=== PATIENT | female | born 1995 | race Caucasian/White ===

== ENCOUNTER 2022-01-28 11:15 | Outpatient (CLI) | payer OTHER ==
[2022-01-28 18:40] LABS: BASOPHILS # (AUTO) 0.1 10^3/uL (0.0-0.1); BASOPHILS % (AUTO) 1.8 %; EOSINOPHILS # (AUTO) 0.2 10^3/uL (0.0-0.7); EOSINOPHILS % (AUTO) 5.2 %; HCT - HEMATOCRIT 43.6 % (37.0-47.0); HGB - HEMOGLOBIN 14.3 g/dL (12.0-16.0); LYMPHOCYTES # (AUTO) 1.3 10^3/uL (1.5-3.5); LYMPHOCYTES % (AUTO) 29.2 %; MEAN CORPUSCULAR HEMOGLOBIN 31.5 pg (27.0-31.0); MEAN CORPUSCULAR HGB CONC 32.8 g/dL (32.0-36.0); MEAN PLATELET VOLUME 10.5 fL (7.9-10.8); MONOCYTES # (AUTO) 0.5 10^3/uL (0.0-1.0); MONOCYTES % (AUTO) 10.2 %; NEUTROPHILS # (AUTO) 2.4 10^3/uL (1.5-6.6); NEUTROPHILS % (AUTO) 53.4 %; PLT - PLATELET COUNT 348 10^3/uL (130-450); RED BLOOD COUNT 4.54 10^6/uL (4.20-5.40); RED CELL DISTRIBUTION WIDTH 12.1 % (12.0-15.0); WHITE BLOOD COUNT 4.4 x10^3/uL (4.8-10.8)
[2022-01-28 18:53] LABS: ALBUMIN 5.1 g/dL (3.2-5.5); ALBUMIN/GLOBULIN RATIO 1.5 (1.0-2.2); BILIRUBIN,TOTAL 0.8 mg/dL (0.2-1.0); CALCIUM 9.6 mg/dL (8.5-10.3); CREATININE 0.6 mg/dL (0.4-1.0); POTASSIUM 4.2 mmol/L (3.5-5.0); TOTAL PROTEIN 8.4 g/dL (6.7-8.2)
== END 2022-01-28 11:16 | disposition home or self-care (01) ==
LOC: LAB.N 11:15
PROVIDERS: ATTEND Registered Nurse
DX: Z13.228 Encounter for screening for other metabolic disorders (principal); Z13.0 Encounter for screening for diseases of the blood and blood-forming organs and certain disorders involving the immune mechanism; Z13.29 Encounter for screening for other suspected endocrine disorder
CPT/HCPCS: 36415; 80053; 84443; 85025

== ENCOUNTER 2022-08-08 14:45 | Outpatient (CLI) | payer OTHER ==
--- NOTE | 2022-08-09 11:31 | Ultrasound Report ---
LIMITED ULTRASOUND OF LEFT BREAST: 08/08/2022 CLINICAL: Intermitten pain in Left breast. No prior exams were available for comparison. Real-time ultrasound of the left breast four quadrants was performed. Lovelace scale images of the real -time examination were reviewed. No significant abnormalities were seen sonographically in the left breast. IMPRESSION: NEGATIVE There is no sonographic evidence of malignancy. There is no abnormality seen in the left breast to correspond with the pain, however, clinical follow up is recommended. Follow-up with ACR/ACS guidelines. This exam was interpreted at Station ID: [id number]. Electronically Signed By: Martinez zeng/terrell:08/08/2022 16:48:47 Ultrasound BI-RADS: 1 Negative BI-RADS CATEGORY: (1) - 1 Unspecified - other no recall LATERALITY: (B)
== END 2022-08-08 14:46 | disposition home or self-care (01) ==
LOC: DI 14:45
PROVIDERS: ATTEND Physician Assistant
DX: N64.4 Mastodynia (principal)

== ENCOUNTER 2022-08-22 15:39 | Outpatient (CLI) | payer OTHER ==
--- NOTE | 2022-08-22 16:49 | Ultrasound Report ---
PROCEDURE: Pelvic w/Transvaginal INDICATIONS: PELVIC PAIN TECHNIQUE: Real-time scanning was performed of the pelvic organs, with image documentation. Additional endovagi nal scanning was necessary due to incomplete visualization of the adnexal and endometrial structures by transabdominal scanning. COMPARISON: None. FINDINGS: Uterus: Uterus is anteverted and normal in size at 6.5 x 2.8 x 4.6 cm. The myometrium is homogeneou s. The endometrium measures 7.3 mm in combined thickness. Ovaries: The right ovary measures 2.6 x 2.2 x 1.7 cm, with a calculated ovarian volume of 5.1 cc. T he left ovary measures 4.8 x 4.3 x 3.6 cm, with a calculated ovarian volume of 38.9 cc. There is a h emorrhagic cyst in left ovary measuring 3.8 x 2.8 x 3.9 cm. A 1.7 x 1.8 cm simple cyst is also noted in the left ovary, most likely a dominant follicle. Less than 12 follicles can be seen in each ovary. No adnexal masses are seen. Other: No pathologic free abdominal or pelvic fluid. IMPRESSION: 1. A 3.8 x 2.8 x 3.9 cm hemorrhagic cyst in left ovary. 2. Normal uterus and right ovary Reviewed by: Jarrell Tafoya MD on 08/22/2022 4:48 PM PDT Approved by: Jarrell Tafoya MD on 08/22/2022 4:48 PM PDT Station ID: [id number]
== END 2022-08-22 15:40 | disposition home or self-care (01) ==
LOC: DI 15:39
PROVIDERS: ATTEND Nurse Practitioner
DX: N83.202 Unspecified ovarian cyst, left side (principal)

== ENCOUNTER 2023-01-17 14:54 | Outpatient (CLI) | payer OTHER ==
--- NOTE | 2023-01-18 15:01 | Ultrasound Report ---
PROCEDURE: Pelvic w/Transvaginal INDICATIONS: OVARIAN CYST TECHNIQUE: Real-time scanning was performed of the pelvic organs, with image documentation. Additional endovagi nal scanning was necessary due to incomplete visualization of the adnexal and endometrial structures by transabdominal scanning. COMPARISON: Pelvic ultrasound 08/22/2022 FINDINGS: Uterus: Uterus is anteverted and measures 6.6 x 2.7 x 4.0 cm. The myometrium is homogeneous. The e ndometrium measures 2 mm in combined thickness. Ovaries: The right ovary measures 3.4 x 2.6 x 2.4 cm, with a calculated ovarian volume of 11 cc. Th e left ovary measures 4.1 x 3.2 x 4.7 cm, with a calculated ovarian volume of 33 cc. Redemonstrated complex cyst with low-level internal echoes within the left ovary, 3.7 x 2.8 x 3.7 cm, previously 3.8 x 2.8 x 3.9 cm, no significant change. Other: No pathologic free abdominal or pelvic fluid. IMPRESSION: No significant change in the previously demonstrated left ovarian complex cyst. The appearance and pe rsistence since the prior exam is suggestive of an endometrioma. Reviewed by: Martinez Murguia MD on 01/18/2023 3:00 PM PST Approved by: Martinez Murguia MD on 01/18/2023 3:00 PM PST Station ID: [id number]
== END 2023-01-17 14:55 | disposition home or self-care (01) ==
LOC: DI 14:54
PROVIDERS: ATTEND Obstetrics & Gynecology
DX: N83.292 Other ovarian cyst, left side (principal)

== ENCOUNTER 2023-02-02 13:18 | Emergency (ER) | payer OTHER ==
[2023-02-02 13:28] VITALS: BP 134/79
--- NOTE | 2023-02-02 13:47 | ED Physician Documentation ---
PD HPI UPPER EXT INJURY - Stated complaint Stated Complaint: LT ARM PX/SWELLING/DISCOLOR - Chief complaint Chief Complaint: Ext Problem - History obtained from History obtained from: Patient - Additonal information Additional information: 27-year-old with 1-month-old Nexplanon in the left upper extremity developed sudden left arm pain whilst laying on the couch about an hour ago. Pain is better but not gone. She briefly had purple nests in her hand associated with this. 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: Ovarian cysts : None HEENT: None Psych: None Musculoskeletal: None Derm: None - Past Surgical History Past Surgical History: No - Present Medications Home Medications: Ambulatory Orders Medication Instructions Recorded Confirmed Glycopyrrolate 1 mg PO DAILY 02/02/23 02/02/23 - Allergies Allergies/Adverse Reactions: Allergies Allergy/AdvReac Type Severity Reaction Status Date / Time No Known Drug Allergies Allergy Verified 02/02/23 13:28 - Social History Does the pt smoke?: Yes Smoking Status: Current every day smoker Does the pt drink ETOH?: No Does the pt have substance abuse?: No - Immunizations Immunizations are current?: Yes - POLST Patient has POLST: No PD ED PE NORMAL - Vitals Vital signs reviewed: Yes - General General: Alert and oriented X 3, No acute distress - Extremities Extremities: Other (There is a palpable Nexplanon just above the left medial antecubital fossa which is tender. It is not red or swollen or having other signs of infection or inflammation. She has normal radial pulses. Normal sensation throughout the hands. Bedside ultrasound does not demonstrate any thrombosis in ) - Neuro Neuro: Alert and oriented X 3, Normal speech Results - Vitals Vitals: Vital Signs - 24 hr 02/02/23 13:21 Temperature 36.9 C Heart Rate 112 H Respiratory 16 Rate Blood Pressure 134/79 H O2 Saturation 99 Oxygen O2 Source Room air PD Medical Decision Making - ED course ED course: 27-year-old with a tender Nexplanon. Vascular cause of pain considered but bedside ultrasound not showing thrombotic disease. Normal pulses. Normal neurologic exam. No neck pain or chest pain is associated with this. Offered to remove the Nexplanon but she would like to do watchful waiting for the next few days. Departure - Departure Disposition: 01 Home, Self Care Clinical Impression: Nexplanon in place Pain of upper extremity Qualifiers: Laterality: left Qualified Code(s): M79.602 - Pain in left arm Condition: Good Record reviewed to determine appropriate education?: Yes Instructions: ED Acute Pain UKO Comments: As discussed, based on exam it seems like the Nexplanon itself is tender and causing the pain you are experiencing. Not clear why, potentially some unrecollected trauma causing inflammation? Does not look infected. Return if worse, if still having persistent pain next week you could follow-up with your nurse practitioner for consideration for removal and alternative control. Ibuprofen as needed for pain per package instructions.
== END 2023-02-02 13:51 | disposition home or self-care (01) ==
LOC: ED 13:18
DX: M79.602 Pain in left arm (principal); Z96.89 Presence of other specified functional implants; F17.200 Nicotine dependence, unspecified, uncomplicated
CPT/HCPCS: 99281; 99283

== ENCOUNTER 2023-02-04 20:26 | Emergency (ER) | payer OTHER ==
[2023-02-04 20:45] VITALS: BP 125/74
[2023-02-04] MEDS ORDERED: LIDOCAINE 1%-EPI 1:100000 10 ML MDV SUBQ STA (21:01)
--- NOTE | 2023-02-04 21:11 | ED Physician Documentation ---
History of Present Illness - Stated complaint Stated Complaint: LT ARM PX - Chief complaint Chief Complaint: Ext Problem - History obtained from History obtained from: Patient, Family (mother) - History of Present Illness Timing: How many days ago (3) - Additonal information Additional information: 27-year-old female who had a Nexplanon placed 1 month ago presented to the emergency department 2 days ago with left arm pain. She has intermittent pain and pain with movement of her arm. She has no evidence of inflammation directly to the site but she has become nervous about her symptoms and wants to have her Nexplanon removed Review of Systems Constitutional: denies: Fever Nose: denies: Congestion Throat: denies: Sore throat Respiratory: denies: Cough GI: reports: Nausea. denies: Vomiting Musculoskeletal: reports: Extremity pain. denies: Joint pain, Extremity swelling, Joint swelling Neurologic: reports: Numbness. 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 : None HEENT: None Psych: None Musculoskeletal: None Derm: None - Past Surgical History Past Surgical History: No - Present Medications Home Medications: Ambulatory Orders Medication Instructions Recorded Confirmed Glycopyrrolate 1 mg PO DAILY 02/02/23 02/02/23 - Allergies Allergies/Adverse Reactions: Allergies Allergy/AdvReac Type Severity Reaction Status Date / Time No Known Drug Allergies Allergy Verified 02/02/23 13:28 - Social History Does the pt smoke?: Yes Smoking Status: Current every day smoker Does the pt drink ETOH?: No Does the pt have substance abuse?: No - Immunizations Immunizations are current?: Yes - POLST Patient has POLST: No PD ED PE NORMAL - Vitals Vital signs reviewed: Yes (tachy) - General General: Alert and oriented X 3, Well developed/nourished, Other (The patient appears anxious and breathless.) - HEENT HEENT: Atraumatic, PERRL, EOMI - Respiratory Respiratory: No respiratory distress - Derm Derm: Normal color, Warm and dry, No rash - Extremities Extremities: No deformity, No edema, Other (The left distal humerus has a palpable subcutaneous foreign body consistent with a Nexplanon near the elbow on the medial surface there is no surrounding erythema or swelling. The area is mildly tender. Distal neurovascular components are intact.) - Neuro Neuro: Alert and oriented X 3, immigration case manager 2-12 intact, No motor deficit, No sensory deficit, Normal speech Eye Opening: Spontaneous Motor: Obeys Commands Verbal: Oriented GCS Score: 15 - Psych Psych: Normal affect, Other (Mood is anxious.) Results - Vitals Vitals: Vital Signs - 24 hr 02/04/23 20:40 Temperature 36.8 C Heart Rate 109 H Respiratory 20 Rate Blood Pressure 125/74 O2 Saturation 99 Oxygen O2 Source Room air Procedures - FB removal FB location: Subcutaneous FB removal preparation: Local anesthesia-specify (2% lido with epi) Removal method: Incision (see [facility] for proceedure report) FB removal aftercare: No complications, Removed successfully PD Medical Decision Making - ED course Complexity details: reviewed old records, considered differential, d/w patient, d/w family ED course: 27-year-old female with a recent placement of a Nexplanon has developed pain around site of insertion without evidence of swelling or erythema. She has had continued vaginal bleeding since placement of the Nexplanon and she wishes the Nexplanon to be removed. She is quite anxious about the entire event. At the conclusion of the removal she is relieved. With the patient's arm above her head and bent I am able to palpate the distal and proximal limbs of the Nexplanon. 2% lido with epi is infiltrated under the distal end of the Nexplanon and a #11 blade is used to incise through the skin and the Nexplanon is manipulated until the end of it protrudes from the incision and this is removed with fingers. The patient tolerated this with some anxiety but did well with pain. The wound was closed with Dermabond. The Nexplanon was discarded. Departure - Departure Disposition: 01 Home, Self Care Clinical Impression: Encounter for Nexplanon removal Condition: Stable Instructions: Etonogestrel implant Follow-Up: Marija Romeo ARNP [Credentialed Staff Provider] - Comments: Shavon today we were able to remove the Nexplanon and my recommendation is to follow-up with Dyan Romeo about continued control. The wound itself will take about 10 days to heal and we are not expecting inflammation swelling or redness associated with this
[2023-02-04] MEDS ORDERED: LIDOCAINE MPF 2%-EPI 1:200000 20 ML VIAL ONE (21:15)
[2023-02-04] MEDS ORDERED: LIDOCAINE MPF 2%-EPI 1:200000 10 ML VIAL SUBQ STA (21:24)
== END 2023-02-04 21:47 | disposition home or self-care (01) ==
LOC: ED 20:26
DX: Z45.89 Encounter for adjustment and management of other implanted devices (principal)
CPT/HCPCS: 11982; 99281

== ENCOUNTER 2023-06-14 13:00 | Emergency (ER) | payer OTHER ==
--- NOTE | 2023-06-14 13:27 | ED Physician Documentation ---
PD HPI CHEST PAIN - Stated complaint Stated Complaint: CHEST PX - Chief complaint Chief Complaint: Cardiac - History obtained from History obtained from: Patient - History of Present Illness Timing - onset: Yesterday Timing - onset during: Light activity. No: Exertion Timing - duration: Days (1) Timing - details: Abrupt onset, Still present, Waxing and waning Quality: Aching, Sharp, Pain Location: Substernal, Left chest Radiation: Back. No: Neck, Abdominal Improved by: Rest Worsened by: Inspiration, Movement. No: Exertion Associated symptoms: Shortness of air, Nausea. 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: Ovarian cysts : None HEENT: None Psych: None Musculoskeletal: None Derm: None - Past Surgical History Past Surgical History: No - Present Medications Home Medications: Ambulatory Orders Medication Instructions Recorded Confirmed Glycopyrrolate 2 mg PO BID 02/02/23 06/14/23 - Allergies Allergies/Adverse Reactions: Allergies Allergy/AdvReac Type Severity Reaction Status Date / Time No Known Drug Allergies Allergy Verified 06/14/23 13:09 - Social History Does the pt smoke?: Yes Smoking Status: Current every day smoker Does the pt drink ETOH?: No Does the pt have substance abuse?: No - Immunizations Immunizations are current?: Yes - POLST Patient has POLST: No PD ED PE NORMAL - Vitals Vital signs reviewed: Yes - General General: Alert and oriented X 3, No acute distress, Well developed/nourished - HEENT HEENT: Pharynx benign - Neck Neck: Supple, no meningeal sign, No adenopathy - Cardiac Cardiac: RRR, No murmur, No rub - Respiratory Respiratory: No respiratory distress, Clear bilaterally - Abdomen Abdomen: Normal bowel sounds, Soft, Non tender, Non distended - Back Back: No CVA TTP - Derm Derm: Normal color, Warm and dry Results - Vitals Vitals: Oxygen O2 Source Room air - EKG (time done) 13:14 EKG releavant findings:: EKG personally interpreted by author of this note. Relevant findings are: Rate: Rate (enter#) (74) Rhythm: NSR [place]: Normal Intervals: Normal [place] QRS: Normal Ischemia: Normal ST segments. No: ST elevation c/w ischemia, ST depression - Labs Labs: Laboratory Tests 06/14/23 06/14/23 06/14/23 13:43 13:43 13:43 WBC 8.2 RBC 4.38 Hgb 13.7 Hct 40.6 MCV 92.7 MCH 31.3 H MCHC 33.7 RDW 11.8 L Plt Count 301 MPV 9.5 Neut # (Auto) 5.3 Lymph # (Auto) 1.9 Stokes # (Auto) 0.5 Eos # (Auto) 0.4 Baso # (Auto) 0.1 Absolute Nucleated RBC 0.00 Nucleated RBC % 0.0 D-Dimer Sodium Potassium Chloride Carbon Dioxide Anion Gap BUN Creatinine Estimated GFR (MDRD) Glucose Calcium Magnesium Total Bilirubin AST ALT Alkaline Phosphatase Troponin I High Sens < 2.3 L B-Natriuretic Peptide 10 Total Protein Albumin Globulin Albumin/Globulin Ratio Lipase 06/14/23 06/14/23 13:53 13:53 WBC RBC Hgb Hct MCV MCH MCHC RDW Plt Count MPV Neut # (Auto) Lymph # (Auto) Stokes # (Auto) Eos # (Auto) Baso # (Auto) Absolute Nucleated RBC Nucleated RBC % D-Dimer < 200.0 L Sodium 137 Potassium 3.9 Chloride 103 Carbon Dioxide 29 Anion Gap 5.0 L BUN 10 Creatinine 0.9 Estimated GFR (MDRD) 76 L Glucose 93 Calcium 9.8 Magnesium 2.1 Total Bilirubin 0.5 AST 19 ALT 14 Alkaline Phosphatase 37 L Troponin I High Sens B-Natriuretic Peptide Total Protein 7.6 Albumin 4.9 Globulin 2.7 Albumin/Globulin Ratio 1.8 Lipase 13 - Rads (name of study) chest xray Relevant Findings:: Prelim report reviewed (no acute infiltrates, no CHF, Effusion, PTX.), EMP independent interpretation of test PD Medical Decision Making - ED course Complexity details: reviewed results (negative trop, BNP and d-dimer to exclude MT, CHF, PE. CXR clear. ECG is normal rhythm. There is some chestwalll tenderness left sternal border without crepitance. No redness/rash. ), considered differential (has not been ill per se. No trauma/injury. Onset of pain with brathing and movement. Consider myofascial. Got ECG/CXR/troponin, as well as d-dimer to eval for PE, BNP for failure. ), d/w patient Reviewed Lab Results: seems muscular/skeletal. Labs CXR and ECG exclude MT, BNP, PE, PTX, effusion, pneumonia. Departure - Departure Disposition: 01 Home, Self Care Clinical Impression: Left-sided chest pain Condition: Stable Record reviewed to determine appropriate education?: Yes Instructions: ED Chest Pain Atypical Unkn Cause Comments: Your tests here appear normal. These include an EKG, chest x-ray, troponin, BNP, D-dimer and blood count. No signs of pneumonia, fluid around the lung, collapsed lung/pneumothorax, heart attack, heart failure, blood clots or anemia. At this point we presume the chest pain is inflammatory, be it of the chest wall (muscles and cartilage) or of the surface of the lung (pleurisy). The common treatment for these would be anti-inflammatory such as ibuprofen or naproxen 2-3 [id number]-[id number] tablets twice daily for the next 5 to 6 days with food. Add Tylenol every 4-6 hours if needed for pain. Recheck if not improving well over the next several days and resolved by 3 to 5 days. Follow-up or return if other symptoms develop such as cough, fevers, worsening symptoms or other concerns. Forms: PCP List Discharge Date/Time: 06/14/23 15:33
[2023-06-14] MEDS ORDERED: IBUPROFEN 600 MG TABLET PO STA (13:50)
[2023-06-14 14:00] LABS: BASOPHILS # (AUTO) 0.1 10^3/uL (0.0-0.1); BASOPHILS % (AUTO) 0.9 %; EOSINOPHILS # (AUTO) 0.4 10^3/uL (0.0-0.7); HCT - HEMATOCRIT 40.6 % (37.0-47.0); HGB - HEMOGLOBIN 13.7 g/dL (12.0-16.0); LYMPHOCYTES # (AUTO) 1.9 10^3/uL (1.5-3.5); LYMPHOCYTES % (AUTO) 22.7 %; MEAN CORPUSCULAR HEMOGLOBIN 31.3 pg (27.0-31.0); MEAN CORPUSCULAR HGB CONC 33.7 g/dL (32.0-36.0); MEAN CORPUSCULAR VOLUME 92.7 fL (81.0-99.0); MEAN PLATELET VOLUME 9.5 fL (7.9-10.8); MONOCYTES # (AUTO) 0.5 10^3/uL (0.0-1.0); MONOCYTES % (AUTO) 6.6 %; NEUTROPHILS # (AUTO) 5.3 10^3/uL (1.5-6.6); NEUTROPHILS % (AUTO) 64.7 %; PLT - PLATELET COUNT 301 10^3/uL (130-450); RED BLOOD COUNT 4.38 10^6/uL (4.20-5.40); RED CELL DISTRIBUTION WIDTH 11.8 % (12.0-15.0); WHITE BLOOD COUNT 8.2 x10^3/uL (4.8-10.8)
--- NOTE | 2023-06-14 14:15 | XRAY Report ---
PROCEDURE: Chest 1 View X-Ray INDICATIONS: chest pain TECHNIQUE: One view of the chest was acquired. COMPARISON: None. FINDINGS: Surgical changes and devices: None. Lungs and pleura: No pleural effusions or pneumothorax. Lungs are clear. Mediastinum: Mediastinal contours appear normal. Heart size is normal. Bones and chest wall: No suspicious bony lesions. Overlying soft tissues appear unremarkable. IMPRESSION: No acute cardiopulmonary process. Reviewed by: Stephanie Mcpherson MD on 06/14/2023 2:14 PM PDT Approved by: Stephanie Mcpherson MD on 06/14/2023 2:14 PM PDT Station ID: [id number]
[2023-06-14 15:29] LABS: ALBUMIN 4.9 g/dL (3.2-5.5); ALBUMIN/GLOBULIN RATIO 1.8 (1.0-2.2); BILIRUBIN,TOTAL 0.5 mg/dL (0.2-1.0); CALCIUM 9.8 mg/dL (8.5-10.3); CREATININE 0.9 mg/dL (0.6-1.3); MAGNESIUM 2.1 mg/dL (1.7-2.3); POTASSIUM 3.9 mmol/L (3.5-4.5); TOTAL PROTEIN 7.6 g/dL (6.4-8.9)
[2023-06-14 15:40] VITALS: BP 117/66
== END 2023-06-14 15:33 | disposition home or self-care (01) ==
LOC: ED 13:00
DX: R07.9 Chest pain, unspecified (principal); F17.200 Nicotine dependence, unspecified, uncomplicated
CPT/HCPCS: 36415; 71045; 80053; 83690; 83735; 83880; 84484; 85025; 85379; 93005; 99283; 99284; A9270

== ENCOUNTER 2023-10-03 09:46 | Outpatient (CLI) | payer OTHER ==
[2023-10-03 12:22] LABS: BASOPHILS # (AUTO) 0.1 10^3/uL (0.0-0.1); BASOPHILS % (AUTO) 1.3 %; EOSINOPHILS # (AUTO) 0.4 10^3/uL (0.0-0.7); HCT - HEMATOCRIT 42.6 % (37.0-47.0); LYMPHOCYTES # (AUTO) 1.9 10^3/uL (1.5-3.5); LYMPHOCYTES % (AUTO) 35.4 %; MEAN CORPUSCULAR HEMOGLOBIN 30.4 pg (27.0-31.0); MEAN CORPUSCULAR HGB CONC 32.9 g/dL (32.0-36.0); MEAN CORPUSCULAR VOLUME 92.4 fL (81.0-99.0); MONOCYTES # (AUTO) 0.5 10^3/uL (0.0-1.0); MONOCYTES % (AUTO) 9.5 %; NEUTROPHILS # (AUTO) 2.4 10^3/uL (1.5-6.6); NEUTROPHILS % (AUTO) 45.6 %; PLT - PLATELET COUNT 318 10^3/uL (130-450); RED BLOOD COUNT 4.61 10^6/uL (4.20-5.40); RED CELL DISTRIBUTION WIDTH 12.2 % (12.0-15.0); WHITE BLOOD COUNT 5.3 x10^3/uL (4.8-10.8)
[2023-10-03 12:43] LABS: ALBUMIN 5.1 g/dL (3.2-5.5); ALBUMIN/GLOBULIN RATIO 2.4 (1.0-2.2); BILIRUBIN,TOTAL 0.7 mg/dL (0.2-1.0); CALCIUM 9.9 mg/dL (8.5-10.3); CREATININE 0.9 mg/dL (0.6-1.3); POTASSIUM 4.1 mmol/L (3.5-4.5); TOTAL PROTEIN 7.2 g/dL (6.4-8.9)
[2023-10-03 12:48] LABS: THYROID STIMULATING HORMONE 1.14 uIU/mL (0.34-5.60)
== END 2023-10-03 09:47 | disposition home or self-care (01) ==
LOC: LAB.N 09:46
PROVIDERS: ATTEND Registered Nurse
DX: Z79.899 Other long term (current) drug therapy (principal); Z13.228 Encounter for screening for other metabolic disorders; Z13.29 Encounter for screening for other suspected endocrine disorder; Z13.0 Encounter for screening for diseases of the blood and blood-forming organs and certain disorders involving the immune mechanism
CPT/HCPCS: 36415; 80053; 84443; 85025

== ENCOUNTER 2023-10-10 11:15 | Outpatient (CLI) | payer OTHER ==
[2023-10-10 18:24] LABS: THYROID STIMULATING HORMONE 1.25 uIU/mL (0.34-5.60)
== END 2023-10-10 11:30 | disposition home or self-care (01) ==
LOC: LAB.N 11:15
PROVIDERS: ATTEND Family Medicine
DX: R53.83 Other fatigue (principal); R07.89 Other chest pain; R11.0 Nausea
CPT/HCPCS: 36415; 84439; 84443; 85651

== ENCOUNTER 2023-11-27 11:03 | Outpatient (CLI) | payer OTHER ==
--- NOTE | 2023-11-29 11:21 | Ultrasound Report ---
PROCEDURE: Pelvic w/Transvaginal INDICATIONS: OVARIAN CYST TECHNIQUE: Real-time scanning was performed of the pelvic organs, with image documentation. Additional endovagi nal scanning was necessary due to incomplete visualization of the adnexal and endometrial structures by transabdominal scanning. COMPARISON: Ultrasounds 01/18/2020, 08/22/2022. FINDINGS: Uterus: Uterus is anteverted and normal in size at 6.2 x 2.7 x 4.7 cm. The myometrium is homogeneou s. The endometrium measures 2.12 mm in combined thickness. Ovaries: The right ovary measures 3.6 x 1.9 x 2.4 cm, with a calculated ovarian volume of 8.68 cc. The left ovary measures 4.1 x 2.9 x 4.25 cm, with a calculated ovarian volume of 26.8cc. The right o vary otherwise has a normal sonographic appearance. Less than 12 follicles can be seen in each ovary . Persistent cystic lesion with low level internal homogeneous echogenicity, thin zuniga, no internal bl ood flow by Doppler again most likely represents an endometrioma now measuring 2.3 x 2.5 x 3.8 cm, wh ich is similar in size to prior study. Other: No pathologic free abdominal or pelvic fluid. IMPRESSION: Left ovarian cystic lesion most likely representing endometrioma is again identified; it is similar i n size to prior study. Reviewed by: Camilo Willis MD on 11/27/2023 12:12 PM PST Approved by: Camilo Willis MD on 11/27/2023 12:12 PM PST Station ID: [id number]
== END 2023-11-27 11:04 | disposition home or self-care (01) ==
LOC: DI 11:03
PROVIDERS: ATTEND Obstetrics & Gynecology
DX: N83.292 Other ovarian cyst, left side (principal); R10.2 Pelvic and perineal pain

== ENCOUNTER 2024-01-08 11:05 | Outpatient (CLI) | payer OTHER ==
--- NOTE | 2024-01-09 09:24 | Ultrasound Report ---
LIMITED ULTRASOUND OF LEFT BREAST: 01/08/2024 CLINICAL: Intermittent pain in bilateral breasts. Comparison is made to exams dated: 08/08/2022 ultrasound and 01/08/2024 ultrasound - [facility]. Real-time ultrasound of the left breast four quadrants was performed. Lovelace scale images of the real- time examination were reviewed. No significant abnormalities were seen sonographically in the left breast. IMPRESSION: NEGATIVE There is no sonographic evidence of malignancy. Exam findings were conveyed to the patient. Patient is advised to monitor for significant change. Cli nical follow-up as needed. This exam was interpreted at Station ID: [id number]. Electronically Signed By: Ousmane Maldonado M.D. slc/:01/08/2024 11:56:46 Ultrasound BI-RADS: 1 Negative BI-RADS CATEGORY: (1) - 1 Unspecified - other recall n/a LATERALITY: (B)
--- NOTE | 2024-01-09 09:24 | Ultrasound Report ---
LIMITED ULTRASOUND OF RIGHT BREAST: 01/08/2024 CLINICAL: Intermittent pain in bilateral breasts. Comparison is made to exams dated: 01/08/2024 ultrasound and 08/08/2022 ultrasound - [facility]. Real-time ultrasound of the right breast four quadrants was performed. Lovelace scale images of the real -time examination were reviewed. No significant abnormalities were seen sonographically in the right breast. IMPRESSION: NEGATIVE There is no sonographic evidence of malignancy. Exam findings were conveyed to the patient. Patient is advised to monitor for significant change. Cli nical follow-up as needed. This exam was interpreted at Station ID: [id number]. Electronically Signed By: Ousmane Maldonado M.D. slc/:01/08/2024 11:56:05 Ultrasound BI-RADS: 1 Negative BI-RADS CATEGORY: (1) - 1 Unspecified - other recall n/a LATERALITY: (B)
== END 2024-01-08 11:06 | disposition home or self-care (01) ==
LOC: DI 11:05
PROVIDERS: ATTEND Registered Nurse
DX: N64.4 Mastodynia (principal)

== ENCOUNTER 2024-01-17 13:30 | Outpatient (CLI) | payer OTHER ==
[2024-01-17 17:39] LABS: BASOPHILS # (AUTO) 0.1 10^3/uL (0.0-0.1); BASOPHILS % (AUTO) 1.1 %; EOSINOPHILS # (AUTO) 0.1 10^3/uL (0.0-0.7); EOSINOPHILS % (AUTO) 2.2 %; HCT - HEMATOCRIT 40.5 % (37.0-47.0); HGB - HEMOGLOBIN 13.5 g/dL (12.0-16.0); LYMPHOCYTES # (AUTO) 1.4 10^3/uL (1.5-3.5); LYMPHOCYTES % (AUTO) 21.2 %; MEAN CORPUSCULAR HEMOGLOBIN 30.7 pg (27.0-31.0); MEAN CORPUSCULAR HGB CONC 33.3 g/dL (32.0-36.0); MEAN PLATELET VOLUME 10.4 fL (7.9-10.8); MONOCYTES # (AUTO) 0.4 10^3/uL (0.0-1.0); MONOCYTES % (AUTO) 6.8 %; NEUTROPHILS # (AUTO) 4.4 10^3/uL (1.5-6.6); NEUTROPHILS % (AUTO) 68.5 %; PLT - PLATELET COUNT 343 10^3/uL (130-450); WHITE BLOOD COUNT 6.4 x10^3/uL (4.8-10.8)
[2024-01-17 17:54] LABS: CALCIUM 9.9 mg/dL (8.5-10.3); CREATININE 0.7 mg/dL (0.6-1.3); POTASSIUM 3.6 mmol/L (3.5-4.5)
== END 2024-01-17 13:45 | disposition home or self-care (01) ==
LOC: LAB.N 13:30
PROVIDERS: ATTEND Physician Assistant Medical
DX: R59.1 Generalized enlarged lymph nodes (principal)
CPT/HCPCS: 36415; 80048; 85025; 87070

== ENCOUNTER 2024-01-23 09:48 | Emergency (ER) | payer OTHER ==
--- NOTE | 2024-01-23 11:15 | XRAY Report ---
PROCEDURE: Chest 1V INDICATIONS: L sided CP TECHNIQUE: One view of the chest was acquired. COMPARISON: None. FINDINGS: Surgical changes and devices: None. Lungs and pleura: No pleural effusions or pneumothorax. Lungs are clear. Mediastinum: Mediastinal contours appear normal. Heart size is normal. Bones and chest wall: No suspicious bony lesions. Overlying soft tissues appear unremarkable. IMPRESSION: No acute cardiopulmonary process. Reviewed by: Yessenia Chang MD on 01/23/2024 11:13 AM PDT Approved by: Yessenia Chang MD on 01/23/2024 11:13 AM PDT Station ID: [id number]
[2024-01-23 11:19] LABS: BASOPHILS # (AUTO) 0.1 10^3/uL (0.0-0.1); BASOPHILS % (AUTO) 1.3 %; EOSINOPHILS # (AUTO) 0.2 10^3/uL (0.0-0.7); EOSINOPHILS % (AUTO) 3.9 %; HCT - HEMATOCRIT 40.5 % (37.0-47.0); HGB - HEMOGLOBIN 13.3 g/dL (12.0-16.0); LYMPHOCYTES # (AUTO) 1.5 10^3/uL (1.5-3.5); LYMPHOCYTES % (AUTO) 24.7 %; MEAN CORPUSCULAR HEMOGLOBIN 30.2 pg (27.0-31.0); MEAN CORPUSCULAR HGB CONC 32.8 g/dL (32.0-36.0); MEAN CORPUSCULAR VOLUME 91.8 fL (81.0-99.0); MEAN PLATELET VOLUME 9.7 fL (7.9-10.8); MONOCYTES # (AUTO) 0.5 10^3/uL (0.0-1.0); MONOCYTES % (AUTO) 7.7 %; NEUTROPHILS # (AUTO) 3.8 10^3/uL (1.5-6.6); NEUTROPHILS % (AUTO) 62.2 %; PLT - PLATELET COUNT 358 10^3/uL (130-450); RED BLOOD COUNT 4.41 10^6/uL (4.20-5.40); RED CELL DISTRIBUTION WIDTH 11.9 % (12.0-15.0); WHITE BLOOD COUNT 6.1 x10^3/uL (4.8-10.8)
[2024-01-23 11:21] VITALS: BP 120/74; O2SAT 98
[2024-01-23 11:38] LABS: BUN - BLOOD UREA NITROGEN 8 mg/dL (6-20); CALCIUM 10.2 mg/dL (8.5-10.3); CARBON DIOXIDE - CO2 27 mmol/L (21-32); CHLORIDE 103 mmol/L (101-111); CREATININE 0.8 mg/dL (0.6-1.3); GFR - MDRD 87 (>89); GLUCOSE 94 mg/dL (74-104); SODIUM 137 mmol/L (135-145)
[2024-01-23 11:41] LABS: TROPONIN I HIGH SENSITIVITY < 2.3 ng/L (2.3-14.8)
--- NOTE | 2024-01-23 11:55 | ED Physician Documentation ---
PD HPI CHEST PAIN - Stated complaint Stated Complaint: CLAVICAL PX - Chief complaint Chief Complaint: General - History obtained from History obtained from: Patient - Additional information Additional information: Pt with no significant past medical history presenting with L sided CP since . Pt reports pain feels like pressure under clavicle. It is worse with sitting up. Pt has had recent evaluations for pain in breasts (negative ultrasounds) and enlarged R neck lymph nodes (which has resolved). Denies recent illness. no SOA. No recent travel, leg swelling. No family history of early CAD. Has tried ibuprofen without significant relief. Review of Systems Constitutional: denies: Fever Cardiac: reports: Chest pain / pressure Respiratory: denies: Dyspnea GI: denies: Abdominal Pain Neurologic: denies: Syncope PD PAST MEDICAL HISTORY - Past Medical History Past Medical History: Yes Cardiovascular: None Respiratory: None Neuro: None Endocrine/Autoimmune: None GI: None [employer]: Ovarian cysts : None HEENT: None Psych: None Musculoskeletal: None Derm: None - Past Surgical History Past Surgical History: No - Present Medications Home Medications: Ambulatory Orders Medication Instructions Recorded Confirmed Glycopyrrolate 2 mg PO BID 02/02/23 01/23/24 - Allergies Allergies/Adverse Reactions: Allergies Allergy/AdvReac Type Severity Reaction Status Date / Time No Known Drug Allergies Allergy Verified 01/23/24 09:58 - Social History Does the pt smoke?: Yes Smoking Status: Current every day smoker Does the pt drink ETOH?: No Does the pt have substance abuse?: No - Immunizations Immunizations are current?: Yes - POLST Patient has POLST: No PD ED PE NORMAL - General General: Alert and oriented X 3, No acute distress, Well developed/nourished - HEENT HEENT: Atraumatic, Moist mucous membranes - Neck Neck: Supple, no meningeal sign - Cardiac Cardiac: RRR, Strong equal pulses, Other (No clavicle tenderness; L anterior chest wall tenderness; no crepitus/bruising/rash) - Respiratory Respiratory: No respiratory distress, Clear bilaterally - Abdomen Abdomen: Soft, Non tender, Non distended - Derm Derm: Warm and dry - Extremities Extremities: No calf tenderness / cord - Neuro Neuro: Normal speech Results - Vitals Vitals: Vital Signs - 24 hr 01/23/24 01/23/24 09:52 11:14 Temperature 37.0 C Heart Rate 108 H 93 Respiratory 20 15 Rate Blood Pressure 125/74 120/74 O2 Saturation 99 98 Oxygen O2 Source Room air - EKG (time done) 1058 EKG releavant findings:: EKG personally interpreted by author of this note. Relevant findings are: Rate 92, normal sinus rhythm, no STEMI, QTc 440 - Labs Labs: Laboratory Tests 01/23/24 01/23/24 01/23/24 11:12 11:12 11:12 WBC 6.1 RBC 4.41 Hgb 13.3 Hct 40.5 MCV 91.8 MCH 30.2 MCHC 32.8 RDW 11.9 L Plt Count 358 MPV 9.7 Neut # (Auto) 3.8 Lymph # (Auto) 1.5 [place] # (Auto) 0.5 Eos # (Auto) 0.2 Baso # (Auto) 0.1 Absolute Nucleated RBC 0.00 Nucleated RBC % 0.0 D-Dimer < 200.0 L Sodium 137 Potassium 4.0 Chloride 103 Carbon Dioxide 27 Anion Gap 7.0 BUN 8 Creatinine 0.8 Estimated GFR (MDRD) 87 L Glucose 94 Calcium 10.2 Troponin I High Sens < 2.3 L PD Medical Decision Making - ED course Complexity details: reviewed results, d/w patient ED course: Pt with L sided chest pain for several days. No risk factors for ACS. EKG reviewed and non ischemic. CBC, chemistries, troponin ddimer all unremarkable. Chest XR negative for pneumonia or cardiomegaly. Pain is reproducible. Possibly costochondritis. Discussed trial of anti inflammatories as well as close follow up with PCP. Pt advised on concerning symptoms to return for. Departure - Departure Disposition: 01 Home, Self Care Clinical Impression: Left-sided chest wall pain Condition: Stable Instructions: ED Chest Pain Costochondritis Comments: Your testing today does not show signs of a heart attack or blood clot in your lungs. Your chest x-ray is also clear. Your symptoms could be related to a condition called costochondritis which will usually get better on its own and with the use of anti-inflammatory medications. I would recommend continue with anti-inflammatory such as ibuprofen or acetaminophen as well as follow-up with your primary care provider. Please return to the emergency department if you develop any worsening symptoms. Forms: PCP List Discharge Date/Time: 01/23/24 12:04
== END 2024-01-23 12:04 | disposition home or self-care (01) ==
LOC: ED 09:48
DX: R07.89 Other chest pain (principal); F17.200 Nicotine dependence, unspecified, uncomplicated
CPT/HCPCS: 36415; 80048; 84484; 85025; 85379; 93005; 99284

== ENCOUNTER 2024-03-11 17:11 | Outpatient (CLI) | payer OTHER ==
[2024-03-11 17:36] LABS: HCT - HEMATOCRIT 40.5 % (37.0-47.0); MEAN CORPUSCULAR HEMOGLOBIN 31.5 pg (27.0-31.0); MEAN CORPUSCULAR HGB CONC 34.6 g/dL (32.0-36.0); MEAN CORPUSCULAR VOLUME 91.2 fL (81.0-99.0); MEAN PLATELET VOLUME 9.8 fL (7.9-10.8); RED BLOOD COUNT 4.44 10^6/uL (4.20-5.40); RED CELL DISTRIBUTION WIDTH 11.9 % (12.0-15.0); WHITE BLOOD COUNT 9.6 x10^3/uL (4.8-10.8)
[2024-03-11 17:52] LABS: CRP - C-REACTIVE PROTEIN < 0.5 mg/dL (<0.5); URIC ACID 3.5 mg/dL (2.3-6.6)
[2024-03-11 18:52] LABS: RHEUMATOID FACTOR NEGATIVE (Negative)
== END 2024-03-11 17:12 | disposition home or self-care (01) ==
LOC: LAB 17:11
PROVIDERS: ATTEND Registered Nurse
DX: M54.50 Low back pain, unspecified (principal); M25.561 Pain in right knee; M25.562 Pain in left knee; R59.1 Generalized enlarged lymph nodes; N64.4 Mastodynia; R53.83 Other fatigue; M25.50 Pain in unspecified joint; M54.6 Pain in thoracic spine
CPT/HCPCS: 36415; 84550; 85027; 85651; 86038; 86140; 86200; 86225; 86430

== ENCOUNTER 2024-04-16 18:33 | Outpatient (CLI) | payer OTHER ==
--- NOTE | 2024-04-17 18:26 | Ultrasound Report ---
PROCEDURE: Pelvic Complete INDICATIONS: OVARIAN CYST TECHNIQUE: Real-time transabdominal scanning was performed of the pelvic organs, with image documentation. COMPARISON: Pelvic ultrasound 11/27/2023 FINDINGS: Uterus: Uterus is anteverted and normal in size at 7.2 x 3.0 x 4.5 cm. The myometrium is homogeneou s. The endometrium measures 9.9 mm in combined thickness. Ovaries: The right ovary measures 2.7 x 1.9 x 2.9 cm, with a calculated ovarian volume of 7.5 cc. T he left ovary measures 3.5 x 4.0 x 3.2 cm, with a calculated ovarian volume of 23.3 cc. Left ovary de monstrates complex focus of echogenicity measuring 2.8 x 2.1 x 2.3 cm compared to 2.3 x 2.5 x 3.8 cm. New simple focus of echogenicity is identified measuring 3.7 x 1.8 x 3.0 cm. Other: No free pelvic fluid. IMPRESSION: Relatively decreased focus of complex echogenicity within the left ovary. As previously identified, t his can represent a complex cyst or potentially less likely endometrioma. New simple left ovarian cyst is present. Reviewed by: Stephanie Mcpherson MD on 04/17/2024 6:25 PM PDT Approved by: Stephanie Mcpherson MD on 04/17/2024 6:25 PM PDT Station ID: [id number]
== END 2024-04-16 18:34 | disposition home or self-care (01) ==
LOC: DI 18:33
PROVIDERS: ATTEND Obstetrics & Gynecology
DX: N83.292 Other ovarian cyst, left side (principal)

== ENCOUNTER 2024-07-17 19:30 | Outpatient (CLI) | payer OTHER ==
--- NOTE | 2024-07-18 12:59 | Ultrasound Report ---
PROCEDURE: Pelvic Complete INDICATIONS: OVARIAN CYST TECHNIQUE: Real-time transabdominal scanning was performed of the pelvic organs, with image documentation. COMPARISON: 04/16/2024 FINDINGS: Uterus: Uterus is anteverted and normal in size at 7.7 x 3.3 x 4.5 cm. The myometrium is homogeneou s. The endometrium measures 8.3 mm in combined thickness. Ovaries: The right ovary measures 3.5 x 2.1 x 3.6 cm, with a calculated ovarian volume of 13.4 cc. The left ovary measures 3.9 x 2.9 x 3.9 cm, with a calculated ovarian volume of 23 cc. The ovaries h ave a normal sonographic appearance. Less than 12 follicles can be seen in each ovary. No adnexal m asses are seen. Left ovarian cystic lesion measuring 3 x 2.4 x 2.7 cm, containing low-level internal echogenicity. This previously measured 2.8 x 2.1 x 2.3 cm. Other: No free pelvic fluid. IMPRESSION: Left ovarian cystic lesion with low-level internal echogenicity, with slight interval growth compared with prior. Findings are concerning for an endometrioma. Reviewed by: Tahir Farrell MD on 07/18/2024 12:57 PM PDT Approved by: Tahir Farrell MD on 07/18/2024 12:57 PM PDT Station ID: [id number]
== END 2024-07-17 19:31 | disposition home or self-care (01) ==
LOC: DI 19:30
PROVIDERS: ATTEND Obstetrics & Gynecology
DX: N83.292 Other ovarian cyst, left side (principal)